=== PATIENT | male | born 1955 | race Caucasian/White ===

== ENCOUNTER 2019-09-21 13:23 | Inpatient (IN) | payer OTHER ==
[~2019-09-21] VITALS: Ht 185.4 cm; Wt 89.0 kg
[2019-09-21 13:27] VITALS: Ht 185.4 cm; Wt 89.0 kg
[2019-09-21 14:02] LABS: PLATELET COUNT 170 x10^3mcL (130-400); RED CELL DISTRIBUTION WIDTH 14.2 % (11.5-14.5)
[2019-09-21 14:53] LABS: CALCIUM 8.9 mg/dL (8.5-10.1); CARBON DIOXIDE 24.6 mmol/L (21-32); CREATININE SERUM 1.4 mg/dL (0.7-1.3)
[2019-09-21 15:02] LABS: ALBUMIN 3.6 g/dL (3.4-5.0); BILIRUBIN TOTAL 0.5 mg/dL (0.20-1.00)
[2019-09-21 16:39] LABS: CHOLESTEROL/HDL RATIO 2.9
[2019-09-21 16:53] VITALS: BP 168/112
[2019-09-21 17:03] VITALS: BP 168/113
[2019-09-21 17:53] LABS: microscopic required? NO
[2019-09-21 18:00] LABS: urine erythrocyte NEGATIVE (NEGATIVE)
[2019-09-21 18:10] LABS: AMPHETAMINE QUAL UR NONE DETECTED (See below)
[2019-09-21 21:56] VITALS: BP 166/91
[2019-09-22 06:35] VITALS: BP 134/99
[2019-09-22 08:45] VITALS: BP 148/108
[2019-09-22 09:45] LABS: BASOPHIL % 0.5 % (0-2); PLATELET COUNT 162 x10^3mcL (130-400); RED CELL DISTRIBUTION WIDTH 13.6 % (11.5-14.5)
[2019-09-22 10:06] LABS: CARBON DIOXIDE 24.6 mmol/L (21-32); CREATININE SERUM 1.3 mg/dL (0.7-1.3); MAGNESIUM 2.2 mg/dL (1.8-2.4); PHOSPHOROUS 4.4 mg/dL (2.5-4.9); POTASSIUM SERUM 4.3 mmol/L (3.5-5.1)
[2019-09-22 14:33] VITALS: BP 153/80
[2019-09-22 17:31] VITALS: BP 131/84
[2019-09-22 21:29] VITALS: BP 124/96
[2019-09-22 22:07] LABS: SITE FLUID RIGHT; SOURCE FLUID PLEURAL
[2019-09-22 22:08] LABS: APPEARANCE FLUID CLOUDY; COLOR FLUID YELLOW; LYMPHOCYTE FLUID 80 %; MONOCYTE FLUID 8 %; RBC FLUID 3183 /cumm; WBC FLUID 186 /cumm
[2019-09-23] VITALS (9 sets, daily range): BP systolic 135–154; BP diastolic 92–110
[2019-09-23 06:38] LABS: BASOPHIL % 0.8 % (0-2); PLATELET COUNT 144 x10^3mcL (130-400); RED CELL DISTRIBUTION WIDTH 13.8 % (11.5-14.5)
[2019-09-23 08:02] LABS: CALCIUM 8.5 mg/dL (8.5-10.1); CARBON DIOXIDE 22.1 mmol/L (21-32); CREATININE SERUM 1.4 mg/dL (0.7-1.3); MAGNESIUM 2.4 mg/dL (1.8-2.4); PHOSPHOROUS 4.4 mg/dL (2.5-4.9); POTASSIUM SERUM 4.4 mmol/L (3.5-5.1)
== END 2019-09-23 13:16 | disposition left against medical advice (07) | DRG 194 ==
LOC: ED 13:23 → DU 15:21
PROVIDERS: Emergency Medicine; Family Medicine; ADMIT Student in an Organized Health Care Education/Training Program
PROC: 0W993ZZ Drainage of Right Pleural Cavity, Percutaneous Approach (ICD-10-PCS; 2019-09-22)
PROC: 0W9B3ZZ Drainage of Left Pleural Cavity, Percutaneous Approach (ICD-10-PCS; principal; 2019-09-23)
DX: I11.0 Hypertensive heart disease with heart failure (principal); J96.01 Acute respiratory failure with hypoxia; I50.9 Heart failure, unspecified; I16.1 Hypertensive emergency; F15.20 Other stimulant dependence, uncomplicated; F17.210 Nicotine dependence, cigarettes, uncomplicated; Z59.0 Homelessness; Z68.25 Body mass index [BMI] 25.0-25.9, adult; Z53.29 Procedure and treatment not carried out because of patient's decision for other reasons; J91.8 Pleural effusion in other conditions classified elsewhere
CPT/HCPCS: 32555; 36600; 83880; 85378; C1729; G0378; J0696; J1940; J2001; J2060; J7060; J7620; Q0092

== ENCOUNTER 2019-10-21 08:38 | Inpatient (IN) | payer OTHER ==
[~2019-10-21] VITALS: Ht 175.3 cm; Wt 84.1 kg
[2019-10-21 08:40] VITALS: Ht 175.3 cm; Wt 84.1 kg
[2019-10-21 09:44] LABS: CHLORIDE SERUM 103 mmol/L (98-107); CREATININE SERUM 1.2 mg/dL (0.7-1.3); GFR1 > 60 mL/min; GLUCOSE SERUM 96 mg/dL (74-106); POTASSIUM SERUM 4.5 mmol/L (3.5-5.1); SODIUM SERUM 138 mmol/L (136-145)
[2019-10-21 09:45] LABS: BASOPHIL % 0.6 % (0-2); PLATELET COUNT 131 x10^3mcL (130-400); RED CELL DISTRIBUTION WIDTH 12.9 % (11.5-14.5)
[2019-10-21 09:48] LABS: ALBUMIN 3.9 g/dL (3.4-5.0); ALKALINE PHOSPHATASE 150 U/L (46-116); ALT/SGPT 45 U/L (16-63); AST/SGOT 28 U/L (15-37); BILIRUBIN TOTAL 1.1 mg/dL (0.20-1.00); TOTAL PROTEIN, SERUM 7.3 g/dL (6.4-8.2)
[2019-10-21] MEDS ORDERED: ZESTRIL10 MG PO (11:05)
[2019-10-21 12:20] VITALS: BP 142/79
[2019-10-21 14:49] VITALS: BP 142/79
[2019-10-21 16:48] VITALS: BP 144/92
[2019-10-21 17:41] LABS: microscopic required? NO
[2019-10-21 17:50] LABS: urine erythrocyte NEGATIVE (NEGATIVE)
[2019-10-21 17:58] LABS: AMPHETAMINE QUAL UR NONE DETECTED (See below)
[2019-10-21 19:29] VITALS: BP 121/80
[2019-10-22 04:31] VITALS: BP 153/90
[2019-10-22 04:35] LABS: BASOPHIL % 0.7 % (0-2); RED CELL DISTRIBUTION WIDTH 12.4 % (11.5-14.5)
[2019-10-22 04:37] LABS: PLATELET COUNT 113 x10^3mcL (130-400)
[2019-10-22 05:04] LABS: ALBUMIN 3.3 g/dL (3.4-5.0); BILIRUBIN TOTAL 0.45 mg/dL (0.20-1.00); CALCIUM 8.1 mg/dL (8.5-10.1); CHOLESTEROL/HDL RATIO 2.9; CREATININE SERUM 1.4 mg/dL (0.7-1.3); MAGNESIUM 1.7 mg/dL (1.8-2.4); POTASSIUM SERUM 4.3 mmol/L (3.5-5.1); TOTAL PROTEIN, SERUM 6.4 g/dL (6.4-8.2)
[2019-10-22 07:49] VITALS: BP 123/84
[2019-10-22] MEDS ORDERED: KLOR-CON 1010 MEQ PO (09:22)
[2019-10-22] MEDS ORDERED: LASIX40 MG PO (09:22)
[2019-10-22] MEDS ORDERED: COREG3.125 MG PO (09:22)
[2019-10-22 11:35] VITALS: BP 132/90
[2019-10-22 12:50] VITALS: BP 132/90
[2019-10-22 16:37] VITALS: BP 127/85
[2019-10-22 20:53] VITALS: BP 125/78
[2019-10-23 08:08] VITALS: BP 146/94
[2019-10-23 12:11] VITALS: BP 119/84
[2019-10-23 13:04] VITALS: BP 119/84
== END 2019-10-23 14:10 | disposition home or self-care (01) | DRG 194 ==
LOC: ED 08:38 → DU 11:39
PROVIDERS: Emergency Medicine; ADMIT Hospitalist
DX: I13.0 Hypertensive heart and chronic kidney disease with heart failure and stage 1 through stage 4 chronic kidney disease, or unspecified chronic kidney disease (principal); J96.91 Respiratory failure, unspecified with hypoxia; I16.0 Hypertensive urgency; I50.23 Acute on chronic systolic (congestive) heart failure; E83.42 Hypomagnesemia; I42.9 Cardiomyopathy, unspecified; N18.3 Chronic kidney disease, stage 3 (moderate); Z87.891 Personal history of nicotine dependence; Z79.899 Other long term (current) drug therapy
CPT/HCPCS: 83880; G0378; J0696; J1644; J1940; J2405; J3475; J7040; J7613; Q0092